=== PATIENT | male | born 1930 | race Caucasian/White ===

== ENCOUNTER 2019-08-01 07:04 | Emergency (ER) | payer MEDICARE, BC ==
--- NOTE | 2019-08-01 07:54 | EDM.PDOC ---
ED HPI GENERAL MEDICAL PROBLEM - General Chief Complaint: Upper Extremity Injury/Pain Stated Complaint: RIGHT WRIST PAIN Time Seen by Provider: 08/01/19 07:51 Source of Information: Reports: Patient History Limitations: Reports: No Limitations - History of Present Illness INITIAL COMMENTS - FREE TEXT/NARRATIVE: pt has a very tender and mildly swollen rt wrist. He has no injured the wrist. He has had an episode similar to this in the past. Onset: Other (started the last 2-3 days. ) Duration: Hour(s): Location: Reports: Upper Extremity, Right Associated Symptoms: Reports: No Other Symptoms right wrist Pain Score (Numeric/FACES): 5 - Related Data Allergies Allergy/AdvReac Type Severity Reaction Status Date / Time No Known Allergies Allergy Verified 08/01/19 07:30 Home Meds: Home Meds Simvastatin 20 mg PO DAILY 08/01/19 [History] Past Medical History - Past Health History Medical/Surgical History: Denies Medical/Surgical History Cardiovascular History: Reports: High Cholesterol Social & Family History - Tobacco Use Smoking Status *Q: Never Smoker - Recreational Drug Use Recreational Drug Use: No Review of Systems - Review of Systems Review Of Systems: See Below Constitutional: Reports: No Symptoms Eyes: Reports: No Symptoms Ears: Reports: No Symptoms Nose: Reports: No Symptoms Mouth/Throat: Reports: No Symptoms Respiratory: Reports: No Symptoms Cardiovascular: Reports: No Symptoms Musculoskeletal: Reports: Other (painin rt wrist. ) ED EXAM, GENERAL - Physical Exam Exam: See Below Free Text/Narrative:: pt has a painful rt wrist with no injury. He had a similar episode several years ago. Exam Limited By: No Limitations General Appearance: Alert, Mild Distress Extremities: Other (pt has slight swelling in the rt wrist. He is very tender to palpate and is having difficulty moving the wrist. ) Psychiatric: Normal Affect, Anxious Course - Vital Signs Last Recorded V/S: Last Vital Signs Temp 35.2 C L 08/01/19 07:41 Pulse 60 08/01/19 07:41 Resp 14 08/01/19 07:41 BP 164/73 H 08/01/19 07:41 Pulse Ox 95 08/01/19 07:41 - Orders/Labs/Meds Labs: Laboratory Tests 08/01/19 08/01/19 Range/Units 07:54 07:54 WBC 12.1 H (4.5-11.0) K/uL RBC 4.27 L (4.30-5.90) M/uL Hgb 11.5 L (12.0-15.0) g/dL Hct 38.0 L (40.0-54.0) % MCV 89 (80-98) fL MCH 27 (27-31) pg MCHC 30 L (32-36) % Plt Count 230 (150-400) K/uL Neut % (Auto) 76 H (36-66) % Lymph % (Auto) 15 L (24-44) % Peach % (Auto) 8 H (2-6) % Eos % (Auto) 1 L (2-4) % Baso % (Auto) 0 (0-1) % Uric Acid 5.0 (3.5-7.2) mg/dL Meds: Medications Discontinued Medications Generic Name Dose Route Start Last Admin Trade Name Freq PRN Reason Stop Dose Admin Ibuprofen 600 mg 08/01/19 07:55 08/01/19 08:07 Motrin PO 08/01/19 07:56 600 mg ONETIME ONE Administration Triamcinolone Acetonide 60 mg 08/01/19 07:55 08/01/19 08:08 Kenalog-40 INJECT 08/01/19 07:56 60 mg ASDIRECTED ONE Administration - Re-Assessments/Exams Free Text/Narrative Re-Assessment/Exam: 08/03/19 10:59 uric acid was normal. Xrays revealed chronic arthritc changes. Pt was given kenalog 60 mg im. 08/03/19 10:59 Departure - Departure Time of Disposition: 08:26 Disposition: Home, Self-Care 01 Condition: Fair Clinical Impression: Acute arthritis - Discharge Information Instructions: Arthritis, [id number] Referrals: PCP,None [Primary Care Provider] - Forms: ED Department Discharge Care Plan Goals: soak in warm water bid, heating pad, motrin 600mg tid for 3 days with food, predisone 10mg daily for 5 days. Sepsis Event Note - Evaluation Sepsis Screening Result: No Definite Risk - Focused Exam Date Exam was Performed: 08/03/19 Time Exam was Performed: 10:58
[2019-08-01] MEDS ORDERED: Ibuprofen 600 MG Tab PO ONE (07:55)
[2019-08-01] MEDS ORDERED: Triamcinolone Acetonide 40 MG/ML 1 ML MDV INJECT ONE (07:55)
--- NOTE | 2019-08-01 08:29 | CRLCR ---
Indication: Right wrist pain Technique: Right wrist 3 views Comparison: None Findings: Bones: Bone alignment normal. No acute fracture or suspicious bone lesion. 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 Mild arthritic changes in the carpal joints. Soft tissues: Nonspecific generalized soft tissue swelling. Impression: There is nonspecific soft tissue edema and moderate arthritic changes. No other specific finding to explain pain. Dictated by Adolph Dubois MD @ 08/01/2019 8:27:26 AM Dictated by: Adolph Dubois MD @ 08/01/2019 08:27:37 (Electronically Signed)
== END 2019-08-01 08:39 | disposition home or self-care (01) ==
LOC: JP.ED 07:04
DX: M19.90 Unspecified osteoarthritis, unspecified site (principal)
CPT/HCPCS: 36415; 73110; 84550; 85025; 99283; A9270; J3301

== ENCOUNTER 2021-09-10 17:53 | Emergency (ER) | payer MEDICARE, BC ==
[2021-09-10] MEDS ORDERED: Sodium Chloride 0.9% 10 ML Syringe FLUSH PRN (17:57)
== END 2021-09-10 19:20 | disposition home or self-care (01) ==
LOC: JP.ED 17:53
DX: R55 Syncope and collapse (principal); I10 Essential (primary) hypertension; F10.129 Alcohol abuse with intoxication, unspecified; E78.00 Pure hypercholesterolemia, unspecified; Z79.899 Other long term (current) drug therapy
CPT/HCPCS: 36415; 80048; 80307; 83880; 84484; 85025; 99284; 99284-25; J3490

== ENCOUNTER 2021-11-27 08:47 | Emergency (ER) | payer MEDICARE, BC ==
[2021-11-27] MEDS ORDERED: Diphtheria,Pertussis(Acell),Tetanus Vaccine 0.5 ML Syringe IM ONE (09:39)
[2021-11-27] MEDS ORDERED: Bacitracin Oint 1 GM U/D Packet TOP ONE (10:00)
== END 2021-11-27 10:26 | disposition home or self-care (01) ==
LOC: JP.ED 08:47
DX: S50.12XA Contusion of left forearm, initial encounter (principal); Z23 Encounter for immunization; E78.00 Pure hypercholesterolemia, unspecified; Z79.899 Other long term (current) drug therapy; W19.XXXA Unspecified fall, initial encounter
CPT/HCPCS: 73090-26-LT; 73090-LT; 90471; 90715; 99281; 99283

== ENCOUNTER 2021-12-24 08:34 | Emergency (ER) | payer MEDICARE, BC | END 2021-12-24 10:26 | disposition home or self-care (01) | LOC: JP.ED 08:34 | DX: S50.12XA Contusion of left forearm, initial encounter (principal); E78.00 Pure hypercholesterolemia, unspecified; Z79.899 Other long term (current) drug therapy; W18.30XA Fall on same level, unspecified, initial encounter | CPT/HCPCS: 99283 ==